=== PATIENT | female | born 1975 | race Caucasian/White ===

== ENCOUNTER 2021-08-03 17:54 | Emergency (ER) | payer BC ==
[~2021-08-03] VITALS: Ht 172.7 cm; Wt 80.9 kg
[~2021-08-03 17:54] MED LIST: ONDA4TAB59 PO
[2021-08-03 17:59] VITALS: BP 137/86
[2021-08-03] MEDS ORDERED: ketorolac tromethamine 15mg/ml inj. IM ONE (19:15)
[2021-08-03] MEDS ORDERED: orphenadrine citrate 60mg/2ml inj. IM ONE (19:15)
[2021-08-03] MEDS ORDERED: DICL100G30 TOP (19:16)
[2021-08-03] MEDS ORDERED: METH-797 PO (19:16)
== END 2021-08-03 20:36 | disposition home or self-care (01) ==
LOC: ER 17:54
DX: M25.551 Pain in right hip (principal); M54.50 Low back pain, unspecified; M79.641 Pain in right hand; G89.29 Other chronic pain; Z79.899 Other long term (current) drug therapy; V89.2XXA Person injured in unspecified motor-vehicle accident, traffic, initial encounter; Y93.89 Activity, other specified; Y92.89 Other specified places as the place of occurrence of the external cause; Y99.8 Other external cause status
CPT/HCPCS: 72100; 73502; 96372; 99284; J1885; J2360